=== PATIENT | female | born 1955 | race American Indian/Alaskan Native ===

== ENCOUNTER 2020-01-12 21:32 | Emergency (ER) | payer MEDICARE ==
--- NOTE | 2020-01-13 00:41 | CR ---
PROCEDURE INFORMATION: Exam: XR Left Wrist Exam date and time: 01/13/2020 12:15 AM Age: 64 years old Clinical indication: Other: Fall/pain; Additional info: Fell TECHNIQUE: Imaging protocol: XR Left wrist. Views: 3 or more views. COMPARISON: No relevant prior studies available. FINDINGS: Bones/joints: Some distal left radial epiphyseal Colles fracture with minor dorsal angulation. Dorsal angulation approximately 10 degrees. There is an ulnar styloid process fracture which is displaced. Slight widening of the scapholunate space suggesting disruption of the scapholunate ligament. 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 Soft tissues: Normal. IMPRESSION: 1. Distal left radial Colles variant fracture with minor dorsal angulation. No distinct articular involvement. 2. Displaced ulnar styloid process fracture. 3. Slight widening of the scapholunate space suggesting scapholunate ligament disruption. 4. 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
--- NOTE | 2020-01-13 00:47 | EDM.PDOC ---
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) Left Wrist Pain Score (Numeric/FACES): 9 - Related Data Allergies Allergy/AdvReac Type Severity Reaction Status Date / Time No Known Allergies Allergy Verified 01/12/20 23:28 Past Medical History Cardiovascular History: Reports: Hypertension Endocrine/Metabolic History: Reports: Diabetes, Type II, Hypothyroidism Other Oncologic History: Endometrial sarcoma (low garde) Social & Family History - Family History Family Medical History: Noncontributory - Tobacco Use Smoking Status *Q: Never Smoker Second Hand Smoke Exposure: No - Caffeine Use Caffeine Use: Reports: Coffee - Recreational Drug Use Recreational Drug Use: No Review of Systems - Review of Systems Review Of Systems: Comprehensive ROS is negative, except as noted in HPI. ED EXAM, GENERAL - Physical Exam Exam: See Below Exam Limited By: No Limitations General Appearance: Alert, WD/WN, Mild Distress, Other (discomfort) Ears: Hearing Grossly Normal Throat/Mouth: Normal Voice, No Airway Compromise Head: Atraumatic Neck: Non-Tender, Full Range of Motion Respiratory/Chest: No Respiratory Distress Cardiovascular: Regular Rate, Rhythm GI/Abdominal: Soft, Non-Tender Extremities: Limited Range of Motion, Other (tender R/P, NV wnl) Neurological: Alert, Oriented, Normal Cognition, Normal Gait, No Motor/Sensory Deficits Psychiatric: Tearful Skin Exam: Warm, Dry, Normal Color Lymphatic: No Adenopathy Course - Vital Signs Last Recorded V/S: Last Vital Signs Temp 36.3 C 01/12/20 23:17 Pulse 81 01/12/20 23:17 Resp 19 01/12/20 23:17 BP 163/84 H 01/12/20 23:17 Pulse Ox 97 01/12/20 23:17 - Orders/Labs/Meds Orders: Active Orders 24 hr Category Date Time Status Blood Glucose Check, Bedside [RC] ONETIME Care 01/12/20 23:29 Active Wrist Comp Min 3V Lt [CR] Urgent Exams 01/13/20 00:28 Ordered Acetaminophen/HYDROcodone [[place] 325-10 MG] Med 01/13/20 00:39 Once 1 tab PO ONETIME ONE - Re-Assessments/Exams Free Text/Narrative Re-Assessment/Exam: 01/13/20 00:47 results discussed with pt. Departure - Departure Time of Disposition: 00:48 Disposition: Home, Self-Care 01 Condition: Good Clinical Impression: Wrist fracture, closed Qualifiers: Encounter type: initial encounter Laterality: left Qualified Code(s): S62.102A - Fracture of unspecified carpal bone, left wrist, initial encounter for closed fracture - Discharge Information Instructions: Wrist Fracture Treated With Immobilization, [id number] Additional Instructions: 1) wear brace and sling until see ORTHOPEDIST 2) see clinic Tuesday for ORTHOPEDIC REFERRAL for wrist fracture. rx given; vicodin 5/325mg tid-qid prn x 12 Sepsis Event Note (ED) - Evaluation Sepsis Screening Result: No Definite Risk - Focused Exam Vital Signs: Vital Signs Temp Pulse Resp BP Pulse Ox 01/12/20 23:17 36.3 C 81 19 163/84 H 97 - My Orders Last 24 Hours: My Active Orders 01/12/20 23:29 Blood Glucose Check, Bedside [RC] ONETIME 01/13/20 00:28 Wrist Comp Min 3V Lt [CR] Urgent 01/13/20 00:39 Acetaminophen/HYDROcodone [[place] 325-10 MG] 1 tab PO ONETIME ONE - Assessment/Plan Last 24 Hours: My Active Orders 01/12/20 23:29 Blood Glucose Check, Bedside [RC] ONETIME 01/13/20 00:28 Wrist Comp Min 3V Lt [CR] Urgent 01/13/20 00:39 Acetaminophen/HYDROcodone [[place] 325-10 MG] 1 tab PO ONETIME ONE
[2020-01-13] MEDS: Acetaminophen/HYDROcodone 325-10 MG Tab PO ONE (00:49)
== END 2020-01-13 01:06 | disposition home or self-care (01) ==
LOC: DL.ED 21:32
DX: S62.102A Fracture of unspecified carpal bone, left wrist, initial encounter for closed fracture (principal); I10 Essential (primary) hypertension; E11.9 Type 2 diabetes mellitus without complications; W01.0XXA Fall on same level from slipping, tripping and stumbling without subsequent striking against object, initial encounter
CPT/HCPCS: 73110; 82962; 99283; A9270; 99284

== ENCOUNTER 2024-02-19 08:02 | Emergency (ER) | payer MEDICARE, OTHER ==
[2024-02-19] MEDS: Fluorescein 1 MG Ophth Strip EYERT ONE (08:30)
[2024-02-19] MEDS: Proparacaine 0.5% Ophth Soln 15 ML Bottle EYERT ONE (08:31)
[2024-02-19] MEDS: Erythromycin Base 0.5% Ophth Oint 3.5 GM Tube EYERT ONE (08:38)
[2024-02-19] MEDS: Fluorescein 1 MG Ophth Strip ONE (08:40)
== END 2024-02-19 08:43 | disposition home or self-care (01) ==
LOC: DL.ED 08:02
DX: S05.01XA Injury of conjunctiva and corneal abrasion without foreign body, right eye, initial encounter (principal); I10 Essential (primary) hypertension; E11.9 Type 2 diabetes mellitus without complications; X58.XXXA Exposure to other specified factors, initial encounter
CPT/HCPCS: 99283; A9270; J3490